=== PATIENT | male | born 1995 | race American Indian/Alaskan Native ===

== ENCOUNTER 2019-02-13 11:11 | Emergency (ER) | payer SELFPAY ==
[2019-02-13 11:29] VITALS: BP 132/72
--- NOTE | 2019-02-13 11:49 | Event Note ---
ED Screening Note Date of service: 02/13/19 Time: 11:47 ED Screening Note: 23 y o male presents with left upper eye lid swelling and pain and abrasions to right hand from punching fibreglass today This initial assessment/diagnostic orders/clinical plan/treatment(s) is/are subject to change based on patients health status, clinical progression and re- assessment by fellow clinical providers in the ED. Further treatment and workup at subsequent clinical providers discretion. Patient/guardian urged not to elope from the ED as their condition may be serious if not clinically assessed and managed. Initial orders include: acc eval
--- NOTE | 2019-02-13 12:37 | Emergency Department Report ---
ED General Adult HPI - General Chief complaint: Eye Problems Stated complaint: LEFT EYE PAIN Time Seen by Provider: 02/13/19 12:32 Source: patient Mode of arrival: Ambulatory Limitations: No Limitations - History of Present Illness Initial comments: This is a 23-year-old man states he woke up in the morning with a black eye on the left. He denies syncope. He denies falls. He denies injury. The "black eye" color has largely resolved. However over the last day he developed some redness and swelling of his left upper lid. There is been no change in vision or visual acuity. In addition, the patient states that he punched a wall with his right hand. He states "it's just cuts". He is not up-to-date on his tetanus. He states he had no desire to hurt himself or others. He is not suicidal or homicidal or agitated time of my encounter. -: Gradual Location: eyes - Related Data Previous Rx's Medication Instructions Recorded Last Taken Type Sulfamethoxazole/Trimethoprim 1 each PO BID #14 tablet 02/13/19 Unknown Rx [Bactrim DS TAB] Allergies Allergy/AdvReac Type Severity Reaction Status Date / Time No Known Allergies Allergy Unverified 02/13/19 11:25 ED Review of Systems ROS: Stated complaint: LEFT EYE PAIN Other details as noted in HPI Constitutional: denies: chills, fever Eyes: as per HPI, other. denies: eye pain, eye discharge, vision change ENT: denies: ear pain, throat pain Respiratory: denies: cough, shortness of breath, wheezing Cardiovascular: denies: chest pain, palpitations Endocrine: no symptoms reported Gastrointestinal: denies: abdominal pain, nausea, diarrhea Genitourinary: denies: urgency, dysuria Musculoskeletal: as per HPI. denies: back pain, joint swelling, arthralgia Skin: denies: rash, lesions Neurological: denies: headache, weakness, paresthesias Psychiatric: denies: anxiety, depression Hematological/Lymphatic: denies: easy bleeding, easy bruising ED Past Medical Hx - Past Medical History Previous Medical History?: No - Surgical History Past Surgical History?: No - Social History Smoking Status: Never Smoker - Medications Home Medications: Home Medications Medication Instructions Recorded Confirmed Last Taken Type Sulfamethoxazole/Trimethoprim 1 each PO BID #14 tablet 02/13/19 Unknown Rx [Bactrim DS TAB] ED Physical Exam - General Limitations: No Limitations General appearance: alert, in no apparent distress - Head Head exam: Present: atraumatic, normocephalic - Eye Eye exam: Present: normal appearance, PERRL, EOMI, other (the cornea is intact. There is 1+ upper lid edema and erythema. There is a tiny pustule towards the lateral canthus.). Absent: scleral icterus, conjunctival injection, nystagmus - ENT ENT exam: Present: mucous membranes moist - Neck Neck exam: Present: normal inspection - Respiratory Respiratory exam: Present: normal lung sounds bilaterally. Absent: respiratory distress - Cardiovascular Cardiovascular Exam: Present: regular rate, normal rhythm. Absent: systolic murmur, diastolic murmur, rubs, gallop - GI/Abdominal GI/Abdominal exam: Present: soft, normal bowel sounds - Rectal Rectal exam: Present: deferred - Extremities Exam Extremities exam: Present: normal capillary refill, other (dorsum of the left hand has a few small superficial lacerations). Absent: full ROM - Back Exam Back exam: Present: normal inspection - Neurological Exam Neurological exam: Present: alert, oriented X3 - Psychiatric Psychiatric exam: Present: normal affect, normal mood - Skin Skin exam: Present: warm, dry, intact, normal color. Absent: rash ED Course Vital Signs 02/13/19 11:26 Temperature 98.2 F Pulse Rate 61 Respiratory 18 Rate Blood Pressure 132/72 O2 Sat by Pulse 99 Oximetry Critical care attestation.: If time is entered above; I have spent that time in minutes in the direct care of this critically ill patient, excluding procedure time. ED Disposition Clinical Impression: Meibomitis Qualifiers: Laterality: left Qualified Code(s): H00.026 - Hordeolum internum left eye, unspecified eyelid Laceration of left hand Qualifiers: Encounter type: initial encounter Foreign body presence: without foreign body Qualified Code(s): S61.412A - Laceration without foreign body of left hand, initial encounter Disposition: TO HOME OR SELFCARE Is pt being admited?: No Does the pt Need Aspirin: No Condition: Stable Instructions: Acute Wound Care (ED), Cellulitis (ED) Additional Instructions: Warm compresses of the lateral side of the eyelid next 2-3 days. Rx as directed. Wound care left hand. Follow-up with director building Dr. Keen) and [facility]. Prescriptions: Sulfamethoxazole/Trimethoprim [Bactrim DS TAB] 1 each PO BID #14 tablet Referrals: KENTRELL ANGULO MD [Referring] - 3-5 Days [facility] [Provider Group] - 3-5 Days Time of Disposition: 12:39
== END 2019-02-13 13:08 | disposition home or self-care (01) ==
LOC: ED 11:11
DX: S61.412A Laceration without foreign body of left hand, initial encounter (principal); H00.024 Hordeolum internum left upper eyelid; Z79.899 Other long term (current) drug therapy; W22.01XA Walked into wall, initial encounter; Y93.89 Activity, other specified; Y92.89 Other specified places as the place of occurrence of the external cause; Y99.8 Other external cause status